=== PATIENT | female | born 1960 | race African-American/Black ===

== ENCOUNTER 2025-05-22 18:50 | Emergency (ER) | payer BC, OTHER ==
[2025-05-22 19:01] VITALS: BP 147/84; PULSE 92; RESP 18; TEMP 98.3; BMI 35.7
[2025-05-22] MEDS ORDERED: METHOCARBAMOL 500 MG TABLET ONE (20:45)
[2025-05-22] MEDS ORDERED: ACETAMINOPHEN INJECTION 100 ML ONE (20:45)
[2025-05-22] MEDS ORDERED: LIDOCAINE 4% PATCH TP ONE (20:45)
[2025-05-22] MEDS: LIDOCAINE 4% PATCH TP ONE (21:00)
[2025-05-22] MEDS: METHOCARBAMOL 500 MG TABLET PO ONE (21:01)
[2025-05-22] MEDS: ACETAMINOPHEN 1000 MG/100 ML BAG IVPB ONE (21:01)
[2025-05-22 21:16] LABS: ABSOLUTE IMMATURE GRANULOCYTES 0.02 x10^3/uL (0.0-0.031); BASOPHILS # 0.04 x10^3/uL (0.01-0.08)
[2025-05-22 21:18] LABS: EOSINOPHIL % 1.8 % (0.7-5.8); EOSINOPHILS # 0.17 x10^3/uL (0.04-0.36); IMMATURE PLATELET FRACTION # 18.40 x10^3/uL; MCHC 32.8 g/dl (32.2-35.5); MEAN CELL VOLUME 95.3 fl (79.4-94.8); MONOCYTE # 0.73 x10^3/uL (0.24-0.86); MONOCYTE % 7.7 % (4.7-12.5); RDW 13.6 % (12.4-16.4)
[2025-05-22 21:20] LABS: EPI CELLS 23 /uL (0-25.1); HYALINE CASTS 2 /uL (0-3.1); URINE APPEARANCE CLEAR; URINE BACTERIA 80 /uL (0-1359); URINE BILIRUBIN NEGATIVE (NEGATIVE); URINE COLOR YELLOW; URINE GLUCOSE (UA) NEGATIVE (NEGATIVE); URINE KETONE NEGATIVE (NEGATIVE); URINE LEUK ESTERASE 2+ (NEGATIVE); URINE NITRITE NEGATIVE (NEGATIVE); URINE PROTEIN NEGATIVE (NEGATIVE); URINE RBC 18 /uL (0-23.9); URINE UROBILINOGEN 0.2 mg/dL (0.2-1.0); URINE WBC 276 /uL (0-25.8)
[2025-05-22 21:22] LABS: GLUCOSE,RANDOM 104.0 mg/dL (74-106); TOT PROT 7.6 g/dl (6.4-8.2)
[2025-05-22 21:23] LABS: CO2 29.0 mmol/L (21-32)
[2025-05-22 21:25] LABS: ALK PHOS 60.0 U/L (40-150)
[2025-05-22 21:27] LABS: SGPT/ALT 25.0 U/L (0-55)
[2025-05-22 21:28] LABS: CREATININE 0.64 mg/dL (0.55-1.3); SGOT/AST 20.0 U/L (5-34)
[2025-05-22] MEDS: LIDOCAINE PATCH REMOVAL MC SCH (22:12)
[2025-05-22] MEDS ORDERED: KETOROLAC TROMETHAMINE 15 MG/ML VIAL ONE (22:53)
[2025-05-22] MEDS: KETOROLAC TROMETHAMINE 15 MG/ML VIAL IVPUSH ONE (22:55)
== END 2025-05-22 23:04 | disposition home or self-care (01) ==
LOC: JER 18:50
PROC: 3E033NZ Introduction of Analgesics, Hypnotics, Sedatives into Peripheral Vein, Percutaneous Approach (ICD-10-PCS; principal; 2025-05-22)
PROC: 3E0333Z Introduction of Anti-inflammatory into Peripheral Vein, Percutaneous Approach (ICD-10-PCS; 2025-05-22)
DX: M54.50 Low back pain, unspecified (principal)
CPT/HCPCS: 36415; 72131-TC; 80053; 81003; 83735; 85025; 87086; 99285-25